=== PATIENT | male | born 1940 | race African-American/Black ===

== ENCOUNTER 2018-07-16 07:42 | Inpatient (IN) ==
[2018-07-16] MEDS ORDERED: NITROGLYCERIN 2% OINT 1 INCH/GM PACK TOP STA (07:57)
[2018-07-16] MEDS ORDERED: NITROGLYCERIN SL 0.4 MG TABLET SL PRN (07:57)
[2018-07-16] MEDS ORDERED: ENOXAPARIN 100 MG/ML SYRINGE SUBCUT STA (08:02)
[2018-07-16 08:14] LABS: Basophils # 0.1 10*3/uL (0.0-0.2); Basophils % 0.6 % (0.0-0.8); Eosinophils # 0.2 10*3/uL (0.0-0.87); Eosinophils % 1.8 % (0.00-10.9); Hematocrit 27.7 VOL% (42.0-52.0); Hemoglobin 7.6 GM/DL (14.0-18.0); Immature Granulocytes % 0.6 %; Immature Granulocytes Absolute 0.06 #; Lymphocytes # 1.5 10*3/uL (1.4-4.0); Mean Corpuscular HGB Conc 27.4 GM/DL (32-36); Mean Corpuscular Hemoglobin 21 PG (27-34); Mean Corpuscular Volume 75.9 FL (87-102); Mean Platelet Volume 10.9 FL (9.6-12.0); Monocytes # 0.5 10*3/uL (0.11-0.8); Monocytes % 5.5 % (1.7-12.7); NRBC # 0.02 10*3/uL; Neutrophils # 7.3 10*3/uL (1.4-7.4); Neutrophils % 75.5 % (38.7-73.9); Platelet Count 359 T/CUMM (130-400); Red Blood Count 3.65 MC/CUMM (3.8-5.5); Red Cell Distribution Width 19.4 % (9.3-17.3); White Blood Count 9.6 T/CUMM (4-12)
[2018-07-16 08:27] LABS: Calcium 8.8 MG/DL (8.5-10.1); Potassium 4.2 MMOL/L (3.5-5.1)
[2018-07-16 08:46] LABS: Anisocytosis 2+; Hypochromasia 1+; Ovalocytes Few; Platelet Estimate Normal; Poikilocytosis 1+
[2018-07-16] MEDS ORDERED: ZALEPLON 5 MG CAPSULE PO PRN (10:14)
[2018-07-16] MEDS ORDERED: ACETAMINOPHEN 325 MG TABLET PO PRN (10:14)
[2018-07-16] MEDS ORDERED: DOCUSATE SODIUM 100 MG CAPSULE PO PRN (10:14)
[2018-07-16] MEDS ORDERED: ONDANSETRON 4 MG/2 ML VIAL IV PRN (10:14)
[2018-07-16] MEDS ORDERED: ASPIRIN 325 MG TABLET PO ONE (11:34)
[2018-07-16] MEDS: PANTOPRAZOLE 40 MG TABLET PO SCH (11:40)
[2018-07-16] MEDS: NITROGLYCERIN 2% OINT 1 INCH/GM PACK TOP SCH ×2 (11:41→17:27)
[2018-07-16] MEDS: SODIUM CHLORIDE 0.9% 1,000 ML IV SCH (16:41)
[2018-07-16 17:36] LABS: Risk Ratio 4.06; VLDL CHOLESTEROL 24.4 MG/DL
[2018-07-16] MEDS: ROSUVASTATIN 10 MG TABLET PO SCH (22:25)
[2018-07-17] MEDS: NITROGLYCERIN 2% OINT 1 INCH/GM PACK TOP SCH ×4 (01:29→18:23)
[2018-07-17] MEDS: SODIUM CHLORIDE 0.9% 1,000 ML IV SCH ×2 (01:30→11:05)
[2018-07-17 04:53] LABS: Basophils # 0.1 10*3/uL (0.0-0.2); Basophils % 0.6 % (0.0-0.8); Eosinophils # 0.2 10*3/uL (0.0-0.87); Eosinophils % 2.4 % (0.00-10.9); Hematocrit 25.7 VOL% (42.0-52.0); Hemoglobin 7.1 GM/DL (14.0-18.0); Immature Granulocytes % 0.4 %; Immature Granulocytes Absolute 0.04 #; Lymphocytes # 1.9 10*3/uL (1.4-4.0); Lymphocytes % 18.9 % (21.2-54.2); Mean Corpuscular HGB Conc 27.6 GM/DL (32-36); Mean Corpuscular Hemoglobin 21 PG (27-34); Mean Corpuscular Volume 74.7 FL (87-102); Mean Platelet Volume 10.9 FL (9.6-12.0); Monocytes % 10.2 % (1.7-12.7); Neutrophils # 6.8 10*3/uL (1.4-7.4); Neutrophils % 67.5 % (38.7-73.9); Platelet Count 297 T/CUMM (130-400); Red Blood Count 3.44 MC/CUMM (3.8-5.5); Red Cell Distribution Width 19.4 % (9.3-17.3); White Blood Count 10.1 T/CUMM (4-12)
[2018-07-17 05:14] LABS: % Iron Saturation 5.8 % (18-50)
[2018-07-17 05:18] LABS: Bilirubin,Total 0.7 MG/DL (0.2-1.0); Calcium 8.6 MG/DL (8.5-10.1); Osmolality,Calculated 291.7 MOS/KG (273-304); Potassium 3.9 MMOL/L (3.5-5.1); Thyroid Stimulating Hormone 1.34 uIU/ml (0.358-3.74); Total Protein 6.7 G/DL (6.4-8.3)
[2018-07-17 05:42] LABS: Hypochromasia 1+; Ovalocytes 2+; Platelet Estimate Normal
[2018-07-17 05:43] LABS: Schistocytes Few; Target Cells Few
[2018-07-17 06:26] LABS: Polychromasia Few
[2018-07-17 06:43] LABS: Folate 7.4 NG/ML (5.4-24.0)
[2018-07-17] MEDS ORDERED: ENOXAPARIN 40 MG/0.4 ML SYRINGE SUBCUT SCH (08:00)
[2018-07-17] MEDS ORDERED: ENOXAPARIN 30 MG/0.3 ML SYRINGE SUBCUT SCH (08:00)
[2018-07-17] MEDS ORDERED: SODIUM CHLORIDE 0.9% 1,000 ML IV PRN (08:04)
[2018-07-17] MEDS: PANTOPRAZOLE 40 MG TABLET PO SCH (09:16)
[2018-07-17] MEDS: DOXAZOSIN 1 MG TABLET PO SCH (09:16)
[2018-07-17] MEDS: ASPIRIN CHEW 81 MG TABLET PO SCH (09:16)
[2018-07-17] MEDS: ATENOLOL 50 MG TABLET PO SCH (09:16)
[2018-07-17] MEDS: ENOXAPARIN 100 MG/ML SYRINGE SUBCUT SCH (09:17)
[2018-07-17] MEDS: amLODIPine 10 MG TABLET PO SCH (09:17)
[2018-07-17] MEDS: ALBUTEROL/IPRATROPIUM 3 ML NEB RESP TX PRN (15:59)
[2018-07-17] MEDS: ROSUVASTATIN 10 MG TABLET PO SCH (22:44)
[2018-07-17] MEDS: FERROUS SULFATE 325 MG TABLET PO SCH (22:44)
[2018-07-18] MEDS: NITROGLYCERIN 2% OINT 1 INCH/GM PACK TOP SCH ×5 (01:00→23:41)
[2018-07-18 05:00] LABS: Basophils # 0.1 10*3/uL (0.0-0.2); Basophils % 0.7 % (0.0-0.8); Eosinophils # 0.3 10*3/uL (0.0-0.87); Eosinophils % 3.3 % (0.00-10.9); Immature Granulocytes % 0.7 %; Immature Granulocytes Absolute 0.06 #; Lymphocytes # 1.9 10*3/uL (1.4-4.0); Lymphocytes % 21.3 % (21.2-54.2); Mean Corpuscular HGB Conc 28.4 GM/DL (32-36); Mean Corpuscular Hemoglobin 22 PG (27-34); Mean Corpuscular Volume 77.3 FL (87-102); Neutrophils # 5.7 10*3/uL (1.4-7.4); Platelet Count 301 T/CUMM (130-400); Red Blood Count 4.01 MC/CUMM (3.8-5.5); Red Cell Distribution Width 19.7 % (9.3-17.3); White Blood Count 9.1 T/CUMM (4-12)
[2018-07-18 05:18] LABS: Calcium 8.5 MG/DL (8.5-10.1); Potassium 3.9 MMOL/L (3.5-5.1)
[2018-07-18 05:21] LABS: Hemoglobin 8.9 GM/DL (14.0-18.0)
[2018-07-18 05:31] LABS: Hypochromasia 1+; Ovalocytes Slight; Platelet Estimate Adequate
[2018-07-18] MEDS: ASPIRIN CHEW 81 MG TABLET PO SCH (08:44)
[2018-07-18] MEDS: ATENOLOL 50 MG TABLET PO SCH (08:44)
[2018-07-18] MEDS: DOXAZOSIN 1 MG TABLET PO SCH (08:44)
[2018-07-18] MEDS: PANTOPRAZOLE 40 MG TABLET PO SCH (08:44)
[2018-07-18] MEDS: FERROUS SULFATE 325 MG TABLET PO SCH ×2 (08:45→21:02)
[2018-07-18] MEDS: ENOXAPARIN 100 MG/ML SYRINGE SUBCUT SCH (08:45)
[2018-07-18] MEDS: amLODIPine 10 MG TABLET PO SCH (08:45)
[2018-07-18] MEDS ORDERED: diphenhydrAMINE CAP 50 MG CAPSULE PO ONE (08:58)
[2018-07-18] MEDS ORDERED: DIAZEPAM 5 MG TABLET PO ONE (08:58)
[2018-07-18] MEDS: SODIUM CHLORIDE 0.9% 1,000 ML IV SCH ×2 (09:12→15:26)
[2018-07-18] MEDS ORDERED: POTASSIUM CHLORIDE RIDER 10 MEQ in PREMIX 1 EACH IV PRN (09:19)
[2018-07-18] MEDS ORDERED: MAGNESIUM SULF RIDER 2 GM in PREMIX 1 EACH IV PRN (09:19)
[2018-07-18] MEDS ORDERED: fentaNYL 100 MCG/2 ML VIAL ONE (09:25)
[2018-07-18] MEDS ORDERED: LIDOCAINE 1% 20 ML VIAL ONE (09:25)
[2018-07-18] MEDS ORDERED: MIDAZOLAM 2 MG/2 ML VIAL ONE (09:25)
[2018-07-18] MEDS ORDERED: HEPARIN 5,000 UNIT/1 ML VIAL ONE (10:17)
[2018-07-18] MEDS ORDERED: TIROFIBAN 5,000 MCG/100 ML PREMIX IV ONE (10:18)
[2018-07-18] MEDS ORDERED: TIROFIBAN 5,000 MCG/100 ML PREMIX IV SCH (10:20)
[2018-07-18] MEDS ORDERED: NIFEdipine 10 MG CAPSULE PO ONE (10:51)
[2018-07-18] MEDS ORDERED: TICAGRELOR 90 MG TABLET ONE (11:37)
[2018-07-18] MEDS ORDERED: NITROGLYCERIN 2% OINT 1 INCH/GM PACK TOP ONE (11:49)
[2018-07-18] MEDS ORDERED: ALUM/MAG/SIMETH/LIDO VISC 1:1 30 ML BOTTLE PO ONE (13:44)
[2018-07-18] MEDS: ALBUTEROL/IPRATROPIUM 3 ML NEB RESP TX PRN (14:10)
[2018-07-18] MEDS: ACETYLCYSTEINE 600 MG CAPSULE PO SCH ×2 (18:15→21:02)
[2018-07-18] MEDS: TICAGRELOR 90 MG TABLET PO SCH (21:02)
[2018-07-18] MEDS: ROSUVASTATIN 10 MG TABLET PO SCH (21:02)
[2018-07-19 04:35] LABS: Basophils # 0.1 10*3/uL (0.0-0.2); Basophils % 0.5 % (0.0-0.8); Eosinophils # 0.1 10*3/uL (0.0-0.87); Eosinophils % 1.3 % (0.00-10.9); Hematocrit 28.1 VOL% (42.0-52.0); Hemoglobin 8.2 GM/DL (14.0-18.0); Immature Granulocytes % 0.4 %; Immature Granulocytes Absolute 0.04 #; Lymphocytes # 1.3 10*3/uL (1.4-4.0); Lymphocytes % 11.9 % (21.2-54.2); Mean Corpuscular HGB Conc 29.2 GM/DL (32-36); Mean Corpuscular Hemoglobin 22 PG (27-34); Mean Corpuscular Volume 75.3 FL (87-102); Mean Platelet Volume 10.5 FL (9.6-12.0); Monocytes # 1.1 10*3/uL (0.11-0.8); Monocytes % 10.6 % (1.7-12.7); Neutrophils % 75.3 % (38.7-73.9); Platelet Count 280 T/CUMM (130-400); Red Blood Count 3.73 MC/CUMM (3.8-5.5); Red Cell Distribution Width 20.1 % (9.3-17.3); White Blood Count 10.6 T/CUMM (4-12)
[2018-07-19 05:02] LABS: Calcium 8.7 MG/DL (8.5-10.1); Osmolality,Calculated 292.8 MOS/KG (273-304); Potassium 3.8 MMOL/L (3.5-5.1)
[2018-07-19 05:03] LABS: Calcium 8.6 MG/DL (8.5-10.1); Osmolality,Calculated 292.8 MOS/KG (273-304); Potassium 3.7 MMOL/L (3.5-5.1)
[2018-07-19] MEDS: NITROGLYCERIN 2% OINT 1 INCH/GM PACK TOP SCH ×2 (05:07→12:57)
[2018-07-19] MEDS ORDERED: ASPIRIN CHEW 81 MG TABLET PO SCH (09:00)
[2018-07-19] MEDS: DOXAZOSIN 1 MG TABLET PO SCH (09:01)
[2018-07-19] MEDS: FERROUS SULFATE 325 MG TABLET PO SCH (09:01)
[2018-07-19] MEDS: amLODIPine 10 MG TABLET PO SCH (09:01)
[2018-07-19] MEDS: TICAGRELOR 90 MG TABLET PO SCH (09:02)
[2018-07-19] MEDS: ATENOLOL 50 MG TABLET PO SCH (09:02)
[2018-07-19] MEDS: PANTOPRAZOLE 40 MG TABLET PO SCH (09:02)
[2018-07-19 12:26] VITALS: BP 133/64
== END 2018-07-19 15:28 | disposition home or self-care (01) | DRG 247 ==
LOC: N.EDINP 07:42 → N.ED 07:42 → N.EDINP 11:08 → N.TELES 11:14
PROVIDERS: ADMIT Internal Medicine; ATTEND Internal Medicine
PROC: CLCCHCL (ICD-10-PCS; 2018-07-18 10:15)